=== PATIENT | female | born 1950 | race Caucasian/White ===

== ENCOUNTER → 2020-11-26 10:16 | Outpatient (BNVA) | payer MEDICARE, SELFPAY | PROVIDERS: PCP Nurse Practitioner Family; Visit Provider Specialist | DX: G56.01 Carpal tunnel syndrome, right upper limb (principal); G56.11 Other lesions of median nerve, right upper limb | CPT/HCPCS: 95908 ==

== ENCOUNTER → 2020-12-26 09:22 | Outpatient (BNVA) | payer MEDICARE, SELFPAY | PROVIDERS: PCP Nurse Practitioner Family; Referring Provider Orthopaedic Surgery; Visit Provider Orthopaedic Surgery | DX: Z20.822 Contact with and (suspected) exposure to COVID-19 (principal) | CPT/HCPCS: 87635 ==

== ENCOUNTER 2021-01-01 11:13 | Day surgery (SDC) | payer MEDICARE, SELFPAY ==
[2020-12-31 13:15] VITALS: BMI 32.2
[2021-01-01 11:58] VITALS: BP 185/95; PULSE 74; RESP 16; TEMP 36.3; O2SAT 96
--- NOTE | 2021-01-01 11:58 | W.PM.OPSUD ---
Surgery/Procedure H&P Update DATE OF PROCEDURE: January 01, 2021 DATE H&P PERFORMED: 12/10/20 H&P UPDATE INFORMATION: I have reviewed H&P completed within last 30 days and I have examined patient prior to procedure PREOP DIAGNOSIS: Carpal tunnel syndrome Right PLANNED PROCEDURE: Operation Date: 01/01/21 13:00 Proposed Procedures p Carpal Tunnel Release [id number] G56.01(Right) - Ba Ortega MD
--- NOTE | 2021-01-01 12:05 | ANES.PREANE2 ---
Pre-Anesthetic Assessment Pre-Anesthetic Assessment: Height/Weight: Height 1.6 m Weight 82.554 kg Temp Pulse Resp BP Pulse Ox 97.4 F L 74 16 185/95 96 01/01/21 11:58 01/01/21 11:58 01/01/21 11:58 01/01/21 11:58 01/01/21 11:58 Preop Diagnosis: Carpal tunnel syndrome Right Proposed Procedure: Operation Date: 01/01/21 13:00 Proposed Procedures p Carpal Tunnel Release [id number] G56.01(Right) - Ba Ortega MD Was Beta Marychuy taken within 24 hours: N/A Was Clonidine taken within 24 hours: N/A Last intake: Intake Last Liquid Date 12/31/20 Last Liquid Time 22:00 Last Solid Date 12/31/20 Last Solid Time 22:00 Social: Social History: No alcohol and No tobacco Exam: Pre-Anes Outpt Exam: alert, oriented x 3, clear to auscultation bilaterally and regular rate & rhythm Airway: Submandibular: WNL Cervical ROM: WNL Dentition: False (upper) CV/HEM: CV/HEM: HTN Metabolic: Metabolic: Hyperlipidemia Anesthetic Plan: ASA status: 2 Anesthesia: MAC and Regional (specify below) (Princess retana) Risk of > 500 ml blood loss (7ml/kg in children): No PFSH Anesthesia PFSH: Social History Smoking and tobacco status: never smoked Data Anesthesia Cardiac Studies: No Data to Display
--- NOTE | 2021-01-01 12:08 | PM.OP ---
Operative Report Date of procedure: January 01, 2021 Pre-op Diagnosis: Carpal tunnel syndrome Right Post-op diagnosis: same Post-op Findings: Same Procedure Done: Right carpal tunnel release Pathology: none sent Surgeon: Ba Ortega Anesthesia: Nerve Block ([place] block) Estimated blood loss (mL): 5 Tourniquet time (min): 20 Complications: None Findings: No masses or space-occupying lesions were seen within the carpal tunnel Condition: stable Disposition: PACU Procedure: Patient was taken to the operating room and anesthesia provided by the anesthesia service. She was prepped and draped with the arm exposed. A timeout was performed. A 3 cm long incision was made in line with the fourth ray from the distal edge of the carpal tunnel extending proximally. The subcutaneous fat and palmar fascia was divided with a scalpel blade. Under loupe magnification the ulnar neurovascular bundle was identified distally. A hemostat could be passed under the transverse carpal ligament allowing the distal 25% to be divided. A slotted guide was then passed beneath the transverse carpal ligament and the middle 50% divided. Blunt scissors were then passed over the guide freeing the proximal ligament. The tourniquet was deflated. Hemostasis provided with electrocautery. Wound edges were infiltrated with 10 cc of a half percent Marcaine solution. Skin edges were reapproximated with 3-0 Prolene. Sterile dressings were applied. The patient was taken to the recovery room in stable condition
[2021-01-01] MEDS: sodium chloride 0.9% 1,000 ML 30 ML IV (12:10)
[2021-01-01 13:05] VITALS: BP 143/78; PULSE 58; RESP 18; TEMP 36.1; O2SAT 95
--- NOTE | 2021-01-01 13:08 | P.PCN_ITS ---
PACU note PACU note: VSS, Good respiratory effort, report to LOMBARDI DEVELOPER Post-Anesthesia Exam: awake
--- NOTE | 2021-01-01 13:08 | PM.PACU ---
PACU note PACU note: VSS, Good respiratory effort, report to EVALUATION ASSISTANT Post-Anesthesia Exam: awake
[2021-01-01 13:10] VITALS: BP 165/89; PULSE 55; RESP 18; TEMP 36.3; O2SAT 95
[2021-01-01 13:15] VITALS: BP 130/70; PULSE 60; RESP 16; TEMP 36.3; O2SAT 96
[2021-01-01 13:30] VITALS: BP 140/72; PULSE 57; RESP 16; TEMP 36.6; O2SAT 97
--- NOTE | 2021-01-01 13:58 | ANE.PACU2 ---
Inpatient post-anesthesia follow up: Airway intact: Yes Vital signs: Temperature 97.4 F Pulse Rate 60 Respiratory Rate 16 Blood Pressure 130/70 Pulse Oximetry 96 Oxygen Delivery Me thod Room Air Oxygen Flow Rate Fraction of Inspir ed Oxygen Hydration adequate: Yes Nausea and vomiting: No Pain level: 2 Mental status: Baseline
== END 2021-01-01 13:47 | disposition home or self-care (01) ==
PROVIDERS: PCP Nurse Practitioner Family; Visit Provider Orthopaedic Surgery
PROC: (CPT 64721; principal; 2021-01-01 12:50)
DX: G56.01 Carpal tunnel syndrome, right upper limb (principal); I10 Essential (primary) hypertension; E78.5 Hyperlipidemia, unspecified
CPT/HCPCS: 64721; J0690; J2704; J3010; J3490; J7030